=== PATIENT | female | born 2000 | race Caucasian/White ===

== ENCOUNTER 2024-06-16 15:10 | Emergency (ER) | payer OTHER, SELFPAY ==
[2024-06-16 15:10] VITALS: BP 142/82; PULSE 94; RESP 14; TEMP 36.1; O2SAT 99
--- NOTE | 2024-06-16 15:17 | EX.ED.UPPERE ---
HPI History of Present Illness Chief Complaint: Upper Extremity Injury PFSH PFSH Medical History Vitamin deficiency Generalized headaches GI problem Emotional problems Back problem Allergies Home Medications ?Medication ?Instructions ?Recorded ?Last Taken ?Type propranolol 10 mg tablet 10 mg PO TID PRN anxiety #90 tabs 08/16/23 Unknown Rx sertraline 100 mg tablet 100 mg PO DAILY #30 tabs 06/07/24 Unknown Rx Allergy/AdvReac Type Severity Reaction Status Date / Time No Known Allergies Allergy Verified 06/16/24 15:11 Family History Other Alcoholism Anxiety Asthma Cancer Depression Hypertension Seizures Surgical History Hx of tonsillectomy Hx of myringotomy Social History Smoking Status: Never smoker alcohol intake: current details: rarely substance use type: does not use what type of physical activity do you participate in: none EXAM Physical Exam Const Vital Signs: 06/16/24 15:10 Temperature 97 F L Temperature Source Temporal Pulse Rate 94 Respiratory Rate 14 Blood Pressure 142/82 H Blood Pressure Mean 102 Pulse Ox 99 Oxygen Delivery Method Room Air Discharge Plan Triage Chief Complaint: Upper Extremity Injury ED Midlevel Provider: Ofe Ivy ED Provider: Jacky Golden Dx/Rx/DC Orders Prescriptions: No Action propranolol 10 mg tablet 10 mg PO TID PRN (Reason: anxiety) Qty: 90 0RF sertraline 100 mg tablet 100 mg PO DAILY Qty: 30 1RF Primary Care Provider: Troy Snow Referrals: Troy Snow MD [Primary Care Provider] - Print Language: Ugandan
[2024-06-16 15:20] VITALS: BMI 47.0
--- NOTE | 2024-06-16 15:21 | EKG12_ITS ---
Test Reason : DIZZINESS Blood Pressure : */* mmHG Vent. Rate : 87 BPM Atrial Rate : 87 BPM P-R Int : 136 ms QRS Dur : 92 ms QT Int : 366 ms P-R-T Axes : 23 38 22 degrees QTcB Int : 440 ms Normal sinus rhythm Minimal voltage criteria for LVH, may be normal variant ( R in aVL ) Borderline ECG No previous ECGs available Confirmed by Mikael Blancas ([id number]), fashion editor FERNANDA TRENT ([id number] on 06/20/2024 10:08:49 AM Referred By: Confirmed By: Mikael Blancas
--- NOTE | 2024-06-16 15:31 | EX.ED.DYSGE1 ---
HPI <SHIRA Ruiz - Last Filed: 06/16/24 17:26> History of Present Illness Chief Complaint: Dizziness Narrative Narrative: 24-year-old female with past medical history of depression presents with lightheadedness. She was 30 minutes into her shift at a [employer] shop and was standing when she suddenly felt lightheaded, nauseous, and looked pale. She states she staggered to the bathroom to sit down and avoided passing out. Her boss gave her leia chew which helped the nausea. No vomiting. She has no chest pain or shortness of breath. She denies recent fever or illness and states she ate and drink this morning as usual. She also reports recent muscle cramping's and head pressure but no overt headache. PFSH <SHIRA Ruiz - Last Filed: 06/16/24 17:26> PFSH Medical History Vitamin deficiency Generalized headaches GI problem Emotional problems Back problem Allergies Home Medications ?Medication ?Instructions ?Recorded ?Last Taken ?Type propranolol 10 mg tablet 10 mg PO TID PRN anxiety #90 tabs 08/16/23 Unknown Rx sertraline 100 mg tablet 100 mg PO DAILY #30 tabs 06/07/24 Unknown Rx meclizine 25 mg tablet 25 mg PO 4X/DAY PRN PRN Dizziness 06/16/24 Unknown Rx #20 tabs Allergy/AdvReac Type Severity Reaction Status Date / Time No Known Allergies Allergy Verified 06/16/24 15:11 Family History Other Alcoholism Anxiety Asthma Cancer Depression Hypertension Seizures Surgical History Hx of tonsillectomy Hx of myringotomy Social History Smoking Status: Never smoker alcohol intake: current details: rarely substance use type: does not use what type of physical activity do you participate in: none ROS <SHIRA Ruiz - Last Filed: 06/16/24 17:26> ROS ED ROS Narrative Constitutional: Negative for fever, chills, malaise. CVS: Negative for palpitations, chest pain, syncope. Respiratory: Negative for shortness of breath. GI: Negative for abdominal pain, nausea, vomiting. Neuro: Negative for headache, motor/sensory dysfunction. EXAM <SHIRA Ruiz - Last Filed: 06/16/24 17:26> Physical Exam Narrative Exam Narrative: CONST: Patient sitting in no acute distress. EYES: Normal inspection. PERRL, EOMI. ENT: Normal inspection, moist mucous membranes. NECK: Normal inspection. RESP: No respiratory distress, CTAB. CVS: Regular rate and rhythm, no murmur, no gallop. ABD: Soft and nontender, no guarding or rebound, nondistended. SKIN: Color normal, no rash, warm, dry, intact. EXTREMITIES: Normal appearance, no pedal edema. NEURO: Alert and answering questions appropriately. PSYCH: Normal affect. Const Vital Signs: 06/16/24 15:10 06/16/24 17:07 Temperature 97 F L 98.4 F Temperature Source Temporal Oral Pulse Rate 94 77 Respiratory Rate 14 19 H Blood Pressure 142/82 H 128/89 H Blood Pressure Mean 102 102 Pulse Ox 99 97 Oxygen Delivery Method Room Air Room Air <Dr. Jacky Golden DO - Last Filed: 06/16/24 17:34> Physical Exam Const Vital Signs: 06/16/24 15:10 06/16/24 17:07 Temperature 97 F L 98.4 F Temperature Source Temporal Oral Pulse Rate 94 77 Respiratory Rate 14 19 H Blood Pressure 142/82 H 128/89 H Blood Pressure Mean 102 102 Pulse Ox 99 97 Oxygen Delivery Method Room Air Room Air MDM <SHIRA Ruiz - Last Filed: 06/16/24 17:26> [facility] Narrative Medical decision making narrative: Differential includes but not limited to syncope, vertigo, dehydration, electrolyte abnormality 24-year-old female presents with nausea and lightheadedness/presyncopal symptoms. She appears well and nontoxic. Vital signs stable. Overall her exam is benign. Neurologically intact. No infectious signs or symptoms. I ordered IV fluids and blood work. CBC and BMP are unremarkable. Magnesium is within normal limits. Urinalysis has pyuria but no infection and she is asymptomatic so I sent for culture and do not think antibiotics are indicated. test is negative. EKG is normal sinus rhythm without ischemic changes. She has no chest pain/shortness of breath so I do not think she requires an ACS or PE workup. When I reassessed the patient she complained of continued dizziness now describing a disequilibrium/spinning sensation so I ordered meclizine. She is feeling a little better and was able to walk to the bathroom and would like to be discharged. I prescribed meclizine as needed and discussed return precautions. Lab Data Attestation: I reviewed the patient's lab results. Labs: Laboratory Results - last 24 hr 06/16/24 06/16/24 06/16/24 15:29 15:32 16:06 WBC 7.1 RBC 4.79 Hgb 13.8 Hct 40.4 MCV 84.3 MCH 28.8 MCHC 34.2 RDW Std Deviation 37.3 RDW Coeff of Diego 12.5 Plt Count 245 MPV 10.2 Immature Gran % (Auto) 0.300 Neut % (Auto) 56.5 Lymph % (Auto) 36.2 [place] % (Auto) 5.8 Eos % (Auto) 0.6 Baso % (Auto) 0.6 Absolute Neuts (auto) 4.0 Absolute Lymphs (auto) 2.55 Nucleated RBC % 0 Sodium 136 Potassium 3.9 Chloride 103 Carbon Dioxide 22.2 Anion Gap 11 BUN 9 Creatinine 0.68 L Estim Creat Clear Calc 163.07 Est GFR (MDRD) Non-Af 126 BUN/Creatinine Ratio 13.7 Glucose 104 H Calcium 9.7 Magnesium 2.2 Urine Color Yellow Urine Clarity Sl. Cloudy Urine pH 7.0 Ur Specific [place] 1.010 Urine Protein Negative Urine Glucose (UA) Normal Urine Ketones Negative Urine Occult Blood 10 H Urine Nitrite Negative Urine Bilirubin Negative Urine Urobilinogen Normal Ur Leukocyte Esterase 500 H Urine RBC 0-5 SEEN Urine WBC 10-25 SEEN Ur Squamous Epith Cells 0-5 SEEN Amorphous Sediment 1+ PHOS Urine Bacteria 0 SEEN Urine Mucus 0 SEEN Urine Test Negative EKG Initial EKG: Attestation: I personally reviewed and interpreted this EKG as follows: Interpretation: Sinus Rhythm and No Acute Injury Pattern Comments: Normal sinus rhythm 87 bpm Normal intervals, no acute ischemic changes No evidence of WPW <Dr. Jacky Golden, DO - Last Filed: 06/16/24 17:34> [facility] MDM Narrative Medical decision making narrative: Differential includes but not limited to syncope, vertigo, dehydration, electrolyte abnormality 24-year-old female presents with nausea and lightheadedness/presyncopal symptoms. She appears well and nontoxic. Vital signs stable. Overall her exam is benign. Neurologically intact. No infectious signs or symptoms. I ordered IV fluids and blood work. CBC and BMP are unremarkable. Magnesium is within normal limits. Urinalysis has pyuria but no infection and she is asymptomatic so I sent for culture and do not think antibiotics are indicated. test is negative. EKG is normal sinus rhythm without ischemic changes. She has no chest pain/shortness of breath so I do not think she requires an ACS or PE workup. When I reassessed the patient she complained of continued dizziness now describing a disequilibrium/spinning sensation so I ordered meclizine. She is feeling a little better and was able to walk to the bathroom and would like to be discharged. I prescribed meclizine as needed and discussed return precautions. Supervisory Physician Note Patient was seen and examined with the Advanced Practice Provider. Nursing notes and vital signs have been reviewed. Pertinent old records have been reviewed. I agree with the essential elements of the HERNAN's history, physical exam, assessment, and plan. The differential diagnosis and management options were discussed with the HERNAN. I participated in determining and agree with the management, procedures, final impression and disposition as documented. See changes noted by me. Please see addendum or separate note for any additional details. 24-year-old female with past medical history of depression presents for evaluation of near syncope. Associated symptom is head heaviness and left neck spasm. She states she has been periodically getting body muscle cramping in which she needs to see her PCP. She denies any fever, chills, URI symptoms, shortness of breath, chest pain abdominal pain, vomiting, dysuria. Denies chance of . Denies any illicit drug use. Symptoms already improving. Gen: A&O x3, NAD Head: Normocephalic, atraumatic Eyes: No sclera icterus, conjunctiva clear, PERRL, EOMI ENT: Moist mucous membranes Neck: Trachea midline, No JVD no midline spinal tenderness, no bony step-offs, mild tenderness to palpation of the left trapezius muscle CV: RRR, no murmurs, no peripheral edema Resp: Lungs CTA BL, no w/r/c GI: Abd soft, non-distended, non-tender, no r/r/g Musc: Full ROM, no deformity Skin: Warm, dry Neuro: Alert, oriented, grossly intact, sensation intact Psych: Cooperative, appropriate mood and affect NS bolus ordered with laboratory workup. No need for CT head. EKG was personally reviewed interpreted by me, ED physician. Normal sinus rhythm. Heart rate 87. CBC unremarkable. BMP relatively unremarkable. Magnesium unremarkable. UA negative for UTI although has 500 leuk esterase without bacteria. Will send for culture. negative. At this point in time, no clear etiology for patient's near syncope. On reevaluation her symptoms have all resolved except she is now describing a spinning/vertigo sensation. Meclizine ordered. On reevaluation, patient's symptoms were improved. She was able to walk to the bathroom without difficulty. Patient discharged home. Follow-up with PCP. Impression: 1. Near syncope 2. Left trapezius muscle spasm 3. Vertigo, resolved Lab Data Labs: Laboratory Results - last 24 hr 06/16/24 06/16/24 06/16/24 15:29 15:32 16:06 WBC 7.1 RBC 4.79 Hgb 13.8 Hct 40.4 MCV 84.3 MCH 28.8 MCHC 34.2 RDW Std Deviation 37.3 RDW Coeff of Diego 12.5 Plt Count 245 MPV 10.2 Immature Gran % (Auto) 0.300 Neut % (Auto) 56.5 Lymph % (Auto) 36.2 [place] % (Auto) 5.8 Eos % (Auto) 0.6 Baso % (Auto) 0.6 Absolute Neuts (auto) 4.0 Absolute Lymphs (auto) 2.55 Nucleated RBC % 0 Sodium 136 Potassium 3.9 Chloride 103 Carbon Dioxide 22.2 Anion Gap 11 BUN 9 Creatinine 0.68 L Estim Creat Clear Calc 163.07 Est GFR (MDRD) Non-Af 126 BUN/Creatinine Ratio 13.7 Glucose 104 H Calcium 9.7 Magnesium 2.2 Urine Color Yellow Urine Clarity Sl. Cloudy Urine pH 7.0 Ur Specific [place] 1.010 Urine Protein Negative Urine Glucose (UA) Normal Urine Ketones Negative Urine Occult Blood 10 H Urine Nitrite Negative Urine Bilirubin Negative Urine Urobilinogen Normal Ur Leukocyte Esterase 500 H Urine RBC 0-5 SEEN Urine WBC 10-25 SEEN Ur Squamous Epith Cells 0-5 SEEN Amorphous Sediment 1+ PHOS Urine Bacteria 0 SEEN Urine Mucus 0 SEEN Urine Test Negative Discharge Plan Triage Chief Complaint: Dizziness Other Complaint: Upper Extremity Injury ED Midlevel Provider: Ofe Ivy ED Provider: Jacky Golden Dx/Rx/DC Orders Clinical Impression: Pre-syncope, Muscle cramps Instructions: Dizziness Fainting Causes Prescriptions: New meclizine 25 mg tablet 25 mg PO 4X/DAY PRN PRN (Reason: Dizziness) Qty: 20 0RF No Action propranolol 10 mg tablet 10 mg PO TID PRN (Reason: anxiety) Qty: 90 0RF sertraline 100 mg tablet 100 mg PO DAILY Qty: 30 1RF Primary Care Provider: Troy Snow Referrals: Troy Snow MD [Primary Care Provider] - Activity Restrictions/Additional Instructions: Overall your testing is normal and reassuring. I am not sure what caused your symptoms. I recommend you increase fluid intake and use the meclizine as needed follow-up with your primary care doctor. If symptoms worsen come back to the ER. Print Language: Swedish Disposition Disposition: Home, Self Care Discharge Date/Time: 06/16/24 17:29
[2024-06-16 15:35] LABS: Absolute Lymphocyte Count 2.55 X10^3/uL (0.83-4.51); Basophil# 0.04 X10^3/uL; Basophil% 0.6 % (0-1); Eosinophil# 0.04 X10^3/uL; Eosinophils% 0.6 % (0-5); Hematocrit 40.4 % (37-47); Hemoglobin 13.8 g/dL (12.0-15.0); Lymphocyte # 2.55 X10^3/ul (0.83-4.51); Lymphocyte % 36.2 % (19-41); Mean Corp Hgb Conc 34.2 g/dL (32-36); Mean Corpuscular Hgb 28.8 pg (27.0-32.0); Mean Corpuscular Volume 84.3 fL (81-99); Mean Platelet Vol. 10.2 fl (6.2-12.0); Monocyte# 0.41 X10^3/uL; Monocyte% 5.8 % (0-10); NRBC Flagged by Analyzer 0 % (0-5); Neutrophil # 3.99 X10^3/uL (2.7-7.7); Neutrophil % 56.5 % (47-70); Platelet Count 245 K/mm3 (150-450); RBC Distribution Width CV 12.5 % (11.6-14.6); RBC Distribution Width SD 37.3 fl (35.1-43.9); Red Blood Count 4.79 M/mm3 (4.2-5.4); White Blood Count 7.1 K/mm3 (4.4-11.0)
[2024-06-16] MEDS: 0.9% Normal Saline (1000mL) 1,000 ML 999 ML IV (15:36)
[2024-06-16] MEDS: Acetaminophen 500 MG Tablet 1000 MG PO (15:39)
[2024-06-16 16:00] LABS: Anion Gap 11 (5-15); BUN 9 mg/dL (4-19); BUN/Creat Ratio 13.7 RATIO (10-20); Calcium,Total 9.7 mg/dL (7.6-11.0); Carbon Dioxide 22.2 mmol/L (21.0-32.0); Chloride 103 mmol/L (98-108); Creatinine, Serum 0.68 mg/dL (0.70-1.20); EST Glomerular Filtration Rate 126 (>60); Estimated Creatinine Clearance 163.07 ml/min (50-250); Glucose 104 mg/dL (70-99); Potassium 3.9 mmol/L (3.3-5.1); Sodium Level 136 mmol/L (133-145)
[2024-06-16 16:13] LABS: Magnesium 2.2 mg/dL (1.5-2.2)
[2024-06-16 16:26] LABS: Bacteria 0 SEEN /hpf (None Seen); Mucous, Urine 0 SEEN /hpf (<or=2+)
[2024-06-16 16:48] LABS: Color, Urine Yellow (Yellow); Glucose, Dipstick Normal (Normal); Ketone-Dipstick Negative (Negative); Leukocyte Esterase-Dipstick 500 /ul (Negative); Nitrite-Dipstick Negative (Negative); Occult Blood-Urine 10 /ul (Negative); Protein-Dipstick Negative (Negative); Urine Bilirubin Dipstick Negative (Negative); Urine Clarity Sl. Cloudy (Clear); Urine Urobilinogen Normal (Normal)
[2024-06-16 16:53] LABS: Internal QC Validated? YES +Cl - CLEAR BKGD; Pregnancy, Urine Negative Negative
[2024-06-16 16:59] LABS: Amorphous Sediment 1+ PHOS; Red Blood Cells-Urine 0-5 SEEN /hpf (0-5); Squamous Epithelial Cells - UA 0-5 SEEN /hpf (5-10); White Blood Cells 10-25 SEEN /hpf (0-5)
[2024-06-16 17:07] VITALS: BP 128/89; PULSE 77; RESP 19; TEMP 36.9; O2SAT 97
[2024-06-16] MEDS: Meclizine HCl 25 MG Tablet PO (17:16)
== END 2024-06-16 17:29 | disposition home or self-care (01) ==
PROVIDERS: Physician Assistant; Emergency Provider Surgery; PCP Internal Medicine; Visit Provider Surgery
DX: R55 Syncope and collapse (principal); R42 Dizziness and giddiness; M62.838 Other muscle spasm; R82.81 Pyuria; F32.A Depression, unspecified; Z79.899 Other long term (current) drug therapy
CPT/HCPCS: 87088; 93005; 96360; 96361; 99284